=== PATIENT | female | born 1945 | race Two or more races ===

== ENCOUNTER 2017-10-13 15:24 | Emergency (ER) | payer MEDICARE, BC ==
[~2017-10-13] VITALS: Ht 167.6 cm; Wt 61.2 kg
--- NOTE | 2017-10-13 15:30 | NUR ---
NECK AND BACK ACHING SINCE FRIDAY, PASSED OUT LAST NIGHT. SENT BY PMD TO GET A CT. NAD NOTED, VSS, RESP EVEN AND UNLABORED, PT WAS PUT ON HOSPITAL GOWN AND MONITOR. AT BS.
[2017-10-13] MEDS ORDERED: IV NS 0.9% 500 ML BAG IV ONE (16:00)
--- NOTE | 2017-10-13 16:06 | NUR ---
PT UNABLE TO PROVIDE URINE AT THIS MOMENT WILL TRY AGAIN AFTER IV FLUIDS.
[2017-10-13 16:22] LABS: BASOPHILS % (AUTO) 0.3 % (0.0-2.0); EOSINOPHILS % (AUTO) 1.1 % (0.0-6.0); HEMATOCRIT 38 % (33-45); HEMOGLOBIN 12.7 g/dL (11.5-14.8); LYMPHOCYTES # (AUTO) 1.5 /CMM (0.8-4.8); LYMPHOCYTES % (AUTO) 17.3 % (20.0-44.0); MEAN CORPUSCULAR HGB CONC 34 g/dl (31.0-36.0); MEAN CORPUSCULAR VOLUME 91 fL (82-100); MONOCYTES # (AUTO) 0.6 /CMM (0.1-1.30); MONOCYTES % (AUTO) 6.8 % (2.0-12.0); NEUTROPHILS # (AUTO) 6.4 /CMM (1.8-8.9); NEUTROPHILS % (AUTO) 74.5 % (43.0-81.0); PLATELET COUNT (AUTO) 183 /CMM (150-450); RDW COEFFICIENT OF VARIATION 12.9 (11.5-15.0); RED BLOOD CELL COUNT(AUTO) 4.12 MIL/uL (4.0-5.2); WHITE BLOOD COUNT (AUTO) 8.5 K/uL (4.3-11.0)
[2017-10-13 16:32] LABS: INR 0.92 (0.87-1.13)
[2017-10-13 16:33] LABS: CALCIUM, SERUM 9.3 mg/dL (8.5-10.1); CARBON DIOXIDE 27 mmol/L (21-32); CHLORIDE 102 mmol/L (98-107); CREATININE 0.8 mg/dL (0.6-1.3); GLUCOSE 128 mg/dL (74-106); POTASSIUM 3.6 mmol/L (3.5-5.1); SODIUM SERUM 138 mmol/L (136-145); UREA NITROGEN, BLOOD 16 mg/dL (7-18)
[2017-10-13 16:40] LABS: TROPONIN I < 0.017 ng/mL (0.00-0.056)
[2017-10-13 16:48] LABS: ALANINE AMINOTRANSFERASE 26 U/L (12-78); ALBUMIN 3.6 g/dL (3.4-5.0); ALKALINE PHOSPHATASE 77 U/L (46-116); ASPARTATE AMINOTRANSFERASE 16 U/L (15-37); BILIRUBIN,DIRECT 0.1 mg/dL (0.0-0.2); BILIRUBIN,TOTAL 0.3 mg/dL (0.2-1.0); TOTAL PROTEIN, SERUM 7.3 g/dL (6.4-8.2)
[2017-10-13 16:52] LABS: APPEARANCE,URINE CLEAR (CLEAR); BILIRUBIN,URINE NEGATIVE (NEGATIVE); BLOOD, URINE 2+ Ery/uL (NEGATIVE); COLOR,URINE YELLOW (YELLOW); KETONES,URINE NEGATIVE (NEGATIVE); LEUKOCYTE ESTERASE ,URINE NEGATIVE (NEGATIVE); NITRITE, URINE NEGATIVE (NEGATIVE); PH,URINE 5.5 (5.0-8.0); PROTEIN,URINE NEGATIVE (NEGATIVE); UGLUCOSE NEGATIVE (NEGATIVE); UROBILINOGEN,URINE 0.2 EU/dL (0.2)
[2017-10-13 17:22] VITALS: BP 135/75
--- NOTE | 2017-10-13 17:23 | NUR ---
Patient discharged to home in stable condition. Written and verbal after care instructions given. Patient verbalizes understanding of instruction.IV removed. Catheter intact and site benign. Pressure and 4x4 applied to site. No bleeding noted.
[2017-10-13 17:49] LABS: BACTERIA,URINE None seen /HPF (None Seen); CALCIUM OXALATE CRYSTALS,UR Few /HPF (None Seen); RBC,URINE 0-2 /HPF (0-2); SQUAMOUS EPITHELIAL CELL,UR Few /HPF (None Seen); WBC,URINE 0-2 /HPF (0-3)
== END 2017-10-13 17:28 | disposition home or self-care (01) ==
LOC: ER 15:25
DX: R55 Syncope and collapse (principal); R42 Dizziness and giddiness; I10 Essential (primary) hypertension; Z88.6 Allergy status to analgesic agent
CPT/HCPCS: 36415; 71045-TC; 80048-TC; 80076-TC; 81000-TC; 84484-TC; 85025-TC; 85730-TC; A4606; J7040; Z7610

== ENCOUNTER 2018-09-30 15:45 | Emergency (ER) | payer MEDICARE, BC ==
[~2018-09-30] VITALS: Ht 167.6 cm; Wt 70.3 kg
[2018-09-30 15:45] VITALS: BP 137/71
[2018-09-30] MEDS ORDERED: ONDANSETRON 4 MG TAB.RAPDIS SL ONE (17:30)
[2018-09-30] MEDS ORDERED: oxyCODONE/APAP (5/325 MG) 1 UDTAB TABLET PO ONE ×2 (17:30→18:30)
[2018-09-30] MEDS ORDERED: KETOROLAC TROMETHAMINE INJ 60 MG/2 ML VIAL IM ONE (17:30)
[2018-09-30] MEDS ORDERED: oxyCODONE/APAP (5/325 MG) 1 UDTAB TABLET ONE ×2 (17:32→18:49)
[2018-09-30] MEDS ORDERED: KETOROLAC TROMETHAMINE INJ 30 MG/ML VIAL ONE (17:32)
[2018-09-30] MEDS ORDERED: ONDANSETRON 4 MG TAB.RAPDIS ONE (17:33)
== END 2018-09-30 19:15 | disposition home or self-care (01) ==
LOC: ER 15:53
DX: M54.2 Cervicalgia (principal); M48.02 Spinal stenosis, cervical region; I10 Essential (primary) hypertension; E78.00 Pure hypercholesterolemia, unspecified; Z90.89 Acquired absence of other organs; Z88.5 Allergy status to narcotic agent
CPT/HCPCS: 70450; 72125; 96372; 99284; J1885; Q0162

== ENCOUNTER 2022-03-11 00:13 | Emergency (ER) | payer MEDICARE, BC ==
[~2022-03-11] VITALS: Ht 167.6 cm; Wt 76.2 kg
--- NOTE | 2022-03-11 01:19 | NUR ---
TO ER BED 10. BIBHUSBAND FROM HOME C/O 03/11 MID UPPER BACK PAIN X4 DAYS. TOOK NORCO AND GABAPENTIN AT HOME WITH NO RELIEF. PT IS ALERT AND ORIENTED. RR EVEN AND NON LABORED. CONNECTED TO MONITOR
--- NOTE | 2022-03-11 01:20 | NUR ---
DR. LAW CABALLERO AT PT'S BEDSIDE FOR EVAL
[2022-03-11] MEDS ORDERED: CYCLOBENZAPRINE 10 MG TABLET PO ONE (01:30)
[2022-03-11] MEDS ORDERED: KETOROLAC TROMETHAMINE INJ 30 MG/ML VIAL IM ONE (01:30)
[2022-03-11] MEDS ORDERED: KETOROLAC TROMETHAMINE INJ 30 MG/ML VIAL ONE (01:33)
[2022-03-11] MEDS ORDERED: CYCLOBENZAPRINE 10 MG TABLET ONE (01:34)
[2022-03-11] MEDS ORDERED: HYDROCODONE/APAP 5/325MG TABLET ONE (02:52)
[2022-03-11] MEDS ORDERED: HYDROCODONE/APAP 7.5/325MG 1 EACH TABLET PO ONE (03:00)
--- NOTE | 2022-03-11 03:03 | NUR ---
PER DR RAINEY, OK TO CUT NORCO 5-325 IN HALF FOR 7.25-325 ORDER
[2022-03-11] MEDS ORDERED: KETO10TA2 PO (03:45)
[2022-03-11] MEDS ORDERED: CYCL5TAB PO (03:45)
--- NOTE | 2022-03-11 03:53 | NUR ---
Patient discharged to home in stable condition. RX Written and verbal after care instructions given. Patient verbalizes understanding of instruction. PT ambulatory with a steady gait
[2022-03-11 03:58] VITALS: BP 121/64
== END 2022-03-11 03:59 | disposition home or self-care (01) ==
LOC: ER 00:22
DX: M54.6 Pain in thoracic spine (principal); I10 Essential (primary) hypertension; E78.00 Pure hypercholesterolemia, unspecified; Z85.43 Personal history of malignant neoplasm of ovary; Z90.89 Acquired absence of other organs; Z79.899 Other long term (current) drug therapy
CPT/HCPCS: 99284; 72128; 96372; J1885